=== PATIENT | male | born 2000 | race Hispanic/Latino ===

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

== ENCOUNTER → 2024-04-30 12:02 | Outpatient (CLI) | payer OTHER, SELFPAY ==
--- NOTE | 2024-04-30 12:04 | DI.US.S_ITS ---
PROCEDURE: US SOFT TISSUE HEAD AND NECK INDICATIONS: Lump in of neck x2 months TECHNIQUE: Real-time scanning was performed of the neck region of interest, with image documentation. COMPARISON: None. FINDINGS: Sonographic evaluation of the left supraclavicular region demonstrates a heterogenous 4.4 x 3.0 x 5.3 cm solid, hypervascular mass, likely representing an abnormal lymph node. IMPRESSION: Left supraclavicular region 5.3 cm mass, likely representing a morphologically abnormal node, which may be secondary to underlying lymphoma, granulomatous disease, or abdominal malignancy. A CT chest with contrast and an ultrasound-guided biopsy of the left supraclavicular mass would be recommended. Dictated by: Kyler Dickinson M.D. on 04/30/2024 at 15:27 Approved by: Kyler Dickinson M.D. on 04/30/2024 at 15:29
== END ==
PROVIDERS: PCP Family Medicine; Referring Provider Student in an Organized Health Care Education/Training Program; Visit Provider Student in an Organized Health Care Education/Training Program
DX: R22.1 Localized swelling, mass and lump, neck (principal)
CPT/HCPCS: 76536

== ENCOUNTER → 2024-05-05 07:02 | Outpatient (CLI) | payer OTHER, SELFPAY ==
--- NOTE | 2024-05-05 07:03 | DI.CT.S_ITS ---
PROCEDURE: CT CHEST ABD PEL W CON INDICATIONS: Neck Mass TECHNIQUE: After the administration of intravenous contrast, 5 mm thick sections acquired from the lung apices to the symphysis. 5 mm coronal and sagittal reformats were performed, with additional 7 mm MIP reformats through the lungs. For radiation dose reduction, the following was used: automated exposure control, adjustment of mA and/or kV according to patient size. COMPARISON: [facility], , US SOFT TISSUE HEAD AND NECK, 04/30/2024, 12:20. FINDINGS: Image quality: Excellent. CHEST: Lower Neck: A known left supraclavicular neck mass measures approximately 3.9 x 5.1 cm on coronal image 41 of series 3. Thyroid: No thyroid nodules which require sonographic follow up, per consensus guidelines. Axillae: No enlarged lymph nodes. Chest Wall: Unremarkable. Lungs and Pleura: No pneumothorax or pleural effusions. No consolidation or suspicious nodules. Heart: Heart size is normal. No pericardial effusion. Thoracic Vessels: The aorta and pulmonary arteries demonstrate normal size. Mediastinum and Gilma: Clearly abnormal superior mediastinal lymph nodes are present. A retrosternal lymph node on image 29 of series 2 measures 2.8 x 2.5 cm. A left superior mediastinal lymph node on image 36 of series 2 measures 2.6 x 4.7 cm. A pre aortic lymph node on image 44 of series 2 measures 2.6 x 5.0 cm. Coronal image 34 of series 3 is an excellent image to see all 3 of these lymph nodes. Esophagus: No wall thickening. No hiatal hernia. ABDOMEN: Liver: No solid mass. Gallbladder: No radiopaque gallstones or wall thickening. Biliary ducts: No biliary dilation. Pancreas: No ductal dilation. Spleen: Size is within normal limits. Spleen measures 10.0 x 6.3 x 11.1 cm. Adrenal Glands: No adrenal nodules. Kidneys and Ureters: No hydronephrosis. No solid mass. No complex renal cystic lesion which requires follow up. Stomach and Bowel: Normal colonic caliber, without significant wall thickening. Peritoneum: No abnormal intraperitoneal fluid. No free air. Ventral Wall: No significant ventral hernia. Abdominal Nodes: No retroperitoneal or mesenteric adenopathy by size criteria. Vessels: Aorta and inferior vena cava are normal in size. PELVIS: Pelvic Organs: Unremarkable. Bladder: No bladder wall thickening, accounting for underdistention. Pelvic Nodes: No enlarged lymph nodes. Miscellaneous: No inguinal hernias are seen. Bones: No aggressive osseous abnormality. IMPRESSION: Markedly enlarged lymph nodes in the left supraclavicular region and superior mediastinum are highly suspicious for lymphoma. No splenomegaly or enlarged lymph nodes in the abdomen and pelvis. Comment: The left supraclavicular lymph node would be an excellent target for image guided biopsy if desired. Alternatively, it can be sampled surgically. Dictated by: Musa Benavidez M.D. on 05/05/2024 at 8:46 Approved by: Musa Benavidez M.D. on 05/05/2024 at 8:52
== END ==
LOC: CT 07:03
PROVIDERS: PCP Family Medicine; Referring Provider Student in an Organized Health Care Education/Training Program; Visit Provider Student in an Organized Health Care Education/Training Program
DX: R22.1 Localized swelling, mass and lump, neck (principal); R59.0 Localized enlarged lymph nodes
CPT/HCPCS: 71260; 74177; Q9967

== ENCOUNTER → 2024-05-13 15:00 | Outpatient (CLI) | payer OTHER, SELFPAY ==
--- NOTE | 2024-05-13 | PATH_ITS ---
[facility] Accession Number: [id number] No. of containers..01 Tissue . 01 Material submitted: . SUPRACLAVICULAR - LEFT SUPRACLAVICULAR MASS NODE . 01 Diagnosis: A: LEFT SUPRACLAVICULAR MASS/NODE, CORE BIOPSY: Classic Hodgkin lymphoma, see comment and microscopic description. - COMMENT: Concurrent flow cytometry case (specimen ID: [id number], 05/14/2024) demonstrated no monoclonal B-cell or aberrant T-cell populations. - Note that subtyping classic Hodgkin lymphoma is reserved for an excisional biopsy sample. - The diagnostic findings were discussed with Marichuy Mayberry, triage nurse at Dr. Martino's clinic at 11:52 AM, on 05/19/2024. [facility] 05/19/2024 1159 Local . 01 Electronically signed: . Leroy Ramsay MD, Pathologist NPI- [id number] . 01 Gross description: . LEFT SUPRACLAVICULAR MASS NODE: Received in formalin are 4 fragment(s) of cano, soft tissue measuring 0.4 x 0.1 x 0.1 cm to 0.7 x 0.1 x 0.1 cm submitted entirely in 1 cassette(s) /YOVANI 05/14/2024 0051 Local . 01 Microscopic: . - Histologic sections demonstrate core fragments of lymphoid and fibrous tissue with involvement by scattered large atypical lymphoid cells with [id number] pale eosinophilic nuclei with prominent eosinophilic nucleoli, consistent with Hodgkin and Domenico-Mariano cells in a background of predominantly mixed B and T-lymphocytes, scattered eosinophils, and rare neutrophils. - Immunohistochemical stains were indicated with adequate controls and show the large atypical lymphoid cells to be positive for CD30 and CD15 (uniform membranous staining with Golgi accentuation), MUM-1, and PAX-5 (weaker staining than surrounding reactive B-cells); while negative for CD45, CD20, CD5, LINWOOD, and BLAZE JOVANA. Staining for EUGENE-1, OCT-2 are inconclusive. CD3 and CD5 highlight background reactive T-cells in a similar fashion. - As part of ongoing software quality manager, select slides were reviewed by Dr. Fawn Bacon who agrees with the interpretation. Technical Note: The immunohistochemical stains reported were performed at [facility] ([facility] [address], [facility] [address]). This test was developed, and the performance characteristics were validated by [facility]. It has not been cleared or approved by the Food and Drug Administration. . 01 Pathologist provided ICD-10: R22.1 . 01 CPT . 862938, X23527, Z25269, D29577 Performed at: [address], [place], [place] [id number] MD Alpesh Mora MD Phone: [phone]
--- NOTE | 2024-05-13 | PATH_ITS ---
Note [facility] Accession Number: [id number] TESTS RESULT FLAG UNITS REF RANGE LAB Flow Interpretation 01 SPECIMEN TYPE: Left Supraclavicular Mass. FLOW INTERPRETATION: No monoclonal B-cell or aberrant T-cell populations, see comments. Flow Comment 01 1. Correlation with tissue morphology is recommended (surgical ID: [id number], report pending at the time of this study). 2. Note that Hodgkin lymphoma, certain non-Hodgkin lymphomas (e.g. T-cell/histiocyte-rich large B-cell lymphoma), and non-hematopoietic neoplasms would not be detected by these studies. - FLOW CYTOMETRY ANALYSIS: The following normal populations are seen: Lymphocytes: 88.6% - B-cells: 30.5% with normal kappa:lambda ratio of 1.6. - T-cells: 67.6% with mildly elevated CD4:CD8 ratio of 4.4, without distinctly aberrant antigen expression. Myeloid cells/red cells/debris/unclassified: Remainder of events Viability: 85.4% Lab Case Number 01 [id number] Specimen Type 01 Left Supraclavicular Mass Resulting Path Name Note 01 . Reviewed by: Leroy Ramsay MD, Pathologist NPI- [id number] Indications for S... 01 The following antigens were evaluated: CD2, CD3, CD4, CD5, CD7, CD8, CD10, CD11b, CD11c, CD13, CD14, CD15, CD16, CD19, CD20, CD22, CD23, CD33, CD34, CD38, CD45, CD56, CD57, CD64, CD103, CD117, FMC-7, HLA-DR, kappa and lambda. Comment: 01 Each antibody in this assay was utilized to assess for potential abnormalities of studied cell populations or to characterize identified abnormalities. . This test was developed and its performance characteristics determined by [employer]. It has not been cleared or approved by the U.S. Food and Drug Administration. . The FDA has determined that such clearance or approval is not necessary. This test is used for clinical purposes. It should not be regarded as investigational or for research. FLAG LEGEND: L-Low Normal,H-High Normal,LL-Alert Low,HH-Alert High <-Panic Low,>-Panic High,A-Abnormal,AA-Critical Abnormal Performed at: [address] [id number] Alpesh Mora MD, Performed at: [address] [id number] MD Alpesh Mora MD Phone: [phone]
--- NOTE | 2024-05-13 15:01 | DI.US.S_ITS ---
PROCEDURE: US BIOPSY LYMPH NODE INDICATIONS: left supraclavicular mass TECHNIQUE: The indications, alternatives, benefits, risks, and complications of the procedure were explained to the patient. Written informed consent was obtained and placed in the chart. Real-time sonography was utilized to choose the site for percutaneous lymph node sampling. The skin was prepped and draped in the usual sterile fashion. 1% lidocaine was infiltrated down to the site of interest. A coaxial needle was then advanced into the site of interest under direct sonographic visualization. A biopsy apparatus was then utilized, and core biopsies were obtained. The needle was then withdrawn; a bandage was applied to the biopsy site. COMPARISON: [facility], CT, CT CHEST ABD PEL W CON, 05/05/2024, 8:12. [facility], US, US SOFT TISSUE HEAD AND NECK, 04/30/2024, 12:20. FINDINGS: Biopsy site(s): Left supraclavicular lymph node measuring 5.3 x 2.7 cm. Needle: 20 gauge wayne biopsy needle set, trocar technique. Number of passes: 6 (3 within the formalin and 3 within RPMI). Medications: 1% lidocaine for local anaesthesia. Complications: None. No postprocedural hematoma. IMPRESSION: Successful ultrasound-guided left supraclavicular lymph node biopsy, with pathology results pending. Dictated by: Wu Breen M.D. on 05/13/2024 at 16:29 Approved by: Wu Breen M.D. on 05/13/2024 at 16:30
== END ==
PROVIDERS: PCP Family Medicine; Referring Provider Student in an Organized Health Care Education/Training Program; Visit Provider Student in an Organized Health Care Education/Training Program
DX: R22.1 Localized swelling, mass and lump, neck (principal)
CPT/HCPCS: 38505; 76942